=== PATIENT | female | born 1990 | race Hispanic/Latino ===

== ENCOUNTER 2022-06-13 17:05 | Emergency (ER) | payer SELFPAY ==
[~2022-06-13] VITALS: Ht 167.6 cm; Wt 102.1 kg
[2022-06-13] MEDS ORDERED: IBUPROFEN 600 MG TAB PO STA (17:20)
[2022-06-13 18:36] LABS: CLARITY,URINE HAZY (CLEAR); COLOR,URINE YELLOW (YELLOW); KETONES,URINE NEGATIVE (NEGATIVE); LEUKOCYTE ESTERASE ,URINE SMALL (NEGATIVE); NITRITE,URINE POSITIVE (NEGATIVE); PROTEIN,URINE DIPSTICK NEGATIVE (NEGATIVE); URINE UROBILINOGEN 0.2 mg/dL (0.2 - 1)
[2022-06-13 18:45] LABS: BACTERIA,URINE MODERATE /HPF; EPITHELIAL CELLS,URINE FEW /LPF; WBC,URINE (MAN) 21-50 /HPF (0-5)
[2022-06-13] MEDS ORDERED: CEFPODOXIME PR200 MG PO (19:17)
== END 2022-06-13 19:20 | disposition home or self-care (01) ==
LOC: ER 17:21
DX: R30.0 Dysuria (principal); N39.0 Urinary tract infection, site not specified; R50.9 Fever, unspecified; M54.50 Low back pain, unspecified
CPT/HCPCS: 81001; 81025; 99283